=== PATIENT | male | born 1985 | race Caucasian/White ===

== ENCOUNTER 2017-10-23 15:24 | Emergency (ER) | payer SELFPAY ==
[2017-10-23 16:16] VITALS: BP 121/89
--- NOTE | 2017-10-23 17:39 | UC ---
Abdominal Pain Male HPI - HPI Summary HPI Summary: right upper quad and mid epigastric pain radiating to back and upper chest-- happens after eating and is worse at night, no nausea vomiting or fevers, - History of Current Complaint Chief Complaint: UCAbdominalPain Stated Complaint: ABD PAIN Time Seen by Provider: 10/23/17 17:35 Hx Obtained From: Patient Onset/Duration: Gradual Onset, Lasting Weeks - 2, Still Present Timing: Constant Severity Initially: Moderate Severity Currently: Moderate Pain Intensity: 4 Pain Scale Used: 0-10 Numeric Location: Discrete At: RUQ, Epigastric Radiates: Yes Character: Sharp Aggravating Factor(s): Food Alleviating Factor(s): Nothing Associated Signs And Symptoms: Negative: Fever, Constipation, Urinary Symptoms, Decreased Appetite, Nausea, Vomiting, Diarrhea, Penile Discharge - Allergies/Home Medications Allergies/Adverse Reactions: Allergies Allergy/AdvReac Type Severity Reaction Status Date / Time No Known Allergies Allergy Verified 10/23/17 16:16 Home Medications: Home Medications Zantac 1 tab PO PRN 10/23/17 [History] PMH/Surg Hx/FS Hx/Imm Hx Previously Healthy: No GI/ History: Gastroesophageal Reflux Other History Of: Negative For: Anticoagulant Therapy - Surgical History Surgical History: None - Family History Family History: mother and sisters with early gal bladder dz and removal - Social History Occupation: Employed Full-time Lives: With Family Alcohol Use: Weekly Substance Use Type: None Smoking Status (MU): Light Every Day Tobacco Smoker Cessation Counseling: Patient Advised to Stop - Immunization History Most Recent Tetanus Shot: 2 mos Review of Systems Constitutional: Negative Skin: Negative Eyes: Negative ENT: Negative Respiratory: Negative Cardiovascular: Negative Gastrointestinal: Abdominal Pain Genitourinary: Negative Motor: Negative Neurovascular: Negative Musculoskeletal: Negative Neurological: Negative Psychological: Negative Is Patient Immunocompromised?: No All Other Systems Reviewed And Are Negative: Yes Physical Exam Triage Information Reviewed: Yes Appearance: Well-Appearing, No Pain Distress, Well-Nourished Vital Signs: Initial Vital Signs Temp 98.3 F 10/23/17 16:11 Pulse 86 10/23/17 16:11 Resp 15 10/23/17 16:11 BP 121/89 10/23/17 16:11 Pulse Ox 100 10/23/17 16:11 Vital Signs Reviewed: Yes Eye Exam: Normal Eyes: Positive: Conjunctiva Clear ENT Exam: Normal ENT: Positive: Normal ENT inspection, Hearing grossly normal, Pharynx normal, TMs normal. Negative: Nasal congestion, Trismus, Muffled voice, Hoarse voice, Dental tenderness, Sinus tenderness Dental Exam: Normal Neck exam: Normal Neck: Positive: Supple, Nontender, No Lymphadenopathy Respiratory Exam: Normal Respiratory: Positive: Chest non-tender, Lungs clear, Normal breath sounds, No respiratory distress, No accessory muscle use Cardiovascular Exam: Normal Cardiovascular: Positive: RRR, No Murmur, Pulses Normal, Brisk Capillary Refill Abdominal Exam: Normal Abdomen Description: Positive: No Organomegaly, Soft, Other: - ruq and mid epigatric discomfort. Negative: CVA Tenderness (R), CVA Tenderness (L), Distended, Guarding, Hepatomegaly, McBurney's Point Tenderness, Peritoneal Signs , Pulsatile Mass Bowel Sounds: Positive: Present Musculoskeletal Exam: Normal Musculoskeletal: Positive: Strength Intact, ROM Intact, No Edema Neurological Exam: Normal Neurological: Positive: Alert, Muscle Tone Normal Psychological Exam: Normal Skin Exam: Normal Diagnostics - Laboratory Diagnostic Studies Completed/Ordered: ua wnl--will draw labs for follow up appoint with MD or Surgeon this week Abd Pain Male Course/Dx - Course Course Of Treatment: low fat diet, pain med, follow with pcp or surgeon this week to ed for worsening pain, fever, nausea/vomiting - Differential Dx/Clinical Impression Provider Diagnoses: RUQ pain, nicotine dependent Discharge - Discharge Plan Condition: Stable Disposition: HOME Prescriptions: Hydrocodone/Acetaminophen [Hydrocodone-Acetamin 5-325 mg] 1 each PO Q6HR PRN # 15 tablet MDD 4 PRN Reason: Pain - Moderate To Severe Patient Education Materials: Gallstones (ED), Low Fat Diet (ED) Referrals: [facility] [place] PHYSICIAN REFERRAL [Outside] - As Soon As Possible David Arredondo MD [Medical Doctor] - 2 Days Additional Instructions: To ED for worsening pain, fevers, or unable to keep down food and liquids--- Follow with Surgeon or PCP this week
[2017-10-24 10:32] LABS: Hematocrit 46 % (42-52); Hemoglobin 15.7 g/dl (14.0-18.0); Mean Corpuscular HGB Conc 34 g/dl (31-36); Mean Corpuscular Hemoglobin 32 pg (27-31); Mean Corpuscular Volume 93 fL (80-94); Mean Platelet Volume 10 um3 (7.4-10.4); Platelet Count 232 10^3/ul (150-450); Red Blood Count 4.96 10^6/ul (4.0-5.4); Red Cell Distribution Width 13 % (10.5-15); White Blood Count 7.8 10^3/ul (3.5-10.8)
[2017-10-24 10:44] LABS: EGFR Non-African American 99.1 (>60)
== END 2017-10-23 18:20 | disposition home or self-care (01) ==
LOC: UCEAST 15:24
DX: R10.11 Right upper quadrant pain (principal); F17.210 Nicotine dependence, cigarettes, uncomplicated; K21.9 Gastro-esophageal reflux disease without esophagitis
CPT/HCPCS: 36415; 80053; 81003; 82150; 83690; 85027; 99202; G0463

== ENCOUNTER 2017-12-24 10:18 | Emergency (ER) | payer OTHER ==
[2017-12-24 11:00] VITALS: BP 147/95
--- NOTE | 2017-12-24 12:27 | UC ---
Neck Pain HPI - HPI Summary HPI Summary: PATIENT PRESENTS WITH ACUTE NECK PAIN AFTER FALLING BACKWARDS ABOUT 11 DAYS AGO. HE WAS IMPROVING UNTIL SEVERAL DAYS AGO WHEN HE MOVED SOME HEAVY FURNITURE AND HIS SYMPTOMS RETURNED. PATIENT IS HAVING DIFFICULTY WITH HEAD ROTATION. STATES THE PAIN IS SHOOTING INTO HIS LEFT ARM. - History of Current Complaint Chief Complaint: UCBackPain Stated Complaint: BACK/NECK/SHOULDER INJURY Time Seen by Provider: 12/24/17 12:02 Hx Obtained From: Patient Timing: Constant Onset/Duration: Sudden Onset, Lasting Days, Still Present Severity: Moderate Pain Intensity: 8 Pain Scale Used: 0-10 Numeric Location: Discrete At: - Posterior neck Character: Sharp, Aching, Stiff Aggravating Factors: Movement Associated Signs & Symptoms: Negative: Swelling, Redness, Bruising, Nuchal Rigity, Weakness, Headache, Paresthesia - Allergies/Home Medications Allergies/Adverse Reactions: Allergies Allergy/AdvReac Type Severity Reaction Status Date / Time No Known Allergies Allergy Verified 12/24/17 10:55 Home Medications: Home Medications Ibuprofen TAB* [Advil TAB*] 800 mg PO Q8HR PRN 12/24/17 [History Confirmed 12/24] Ranitidine TAB (NF) [Zantac TAB (NF)] 150 mg PO DAILY PRN 12/24/17 [History Confirmed 12/24/17] PMH/Surg Hx/FS Hx/Imm Hx Previously Healthy: Yes Other History Of: Negative For: Anticoagulant Therapy - Surgical History Surgical History: None - Family History Known Family History: Positive: Hypertension Family History: mother and sisters with early gal bladder dz and removal - Social History Alcohol Use: Occasionally Substance Use Type: None Smoking Status (MU): Light Every Day Tobacco Smoker Amount Used/How Often: 4-8cig/day Household Exposure Type: Cigarettes - Immunization History Most Recent Tetanus Shot: 2 mos Review Of Systems Constitutional: Positive: Negative Skin: Positive: Negative Respiratory: Positive: Negative Cardiovascular: Positive: Negative Gastrointestinal: Positive: Negative Musculoskeletal: Positive: Arthralgia, Decreased ROM All Other Systems Reviewed And Are Negative: Yes Physical Exam Triage Information Reviewed: Yes Appearance: Well-Appearing, No Pain Distress, Well-Nourished Vital Signs: Initial Vital Signs Temp 98.4 F 12/24/17 10:56 Pulse 76 12/24/17 10:56 Resp 18 12/24/17 10:56 BP 147/95 12/24/17 10:56 Pulse Ox 100 12/24/17 10:56 Vital Signs Reviewed: Yes Eyes: Positive: Conjunctiva Clear ENT: Positive: Hearing grossly normal Neck: Positive: Supple, No Lymphadenopathy, Tenderness @ - POSTERIOR NECK OVER SPINOUS PROCESSES, Other: - UNABLE TO ASSESS SPURLINGS DUE TO PT DISCOMFORT Respiratory: Positive: No respiratory distress, No accessory muscle use Cardiovascular: Positive: Pulses Normal Abdomen Description: Positive: Soft Musculoskeletal: Positive: No Edema Neurological: Positive: Alert Psychological: Positive: Age Appropriate Behavior Skin: Negative: rashes Neck Pain Course/Dx - Differential Dx/Diagnosis Provider Diagnoses: ACUTE CERVICAL STRAIN Discharge - Sign-Out/Discharge Documenting (check all that apply): Discharge/Admit/Transfer - Discharge Plan Condition: Stable Disposition: HOME Prescriptions: Cyclobenzaprine TAB* [Flexeril TAB*] 10 mg PO TID PRN #30 tab PRN Reason: Pain Meloxicam [Mobic] 7.5 mg PO BID PRN #30 tab PRN Reason: Pain Patient Education Materials: Cervical Strain (ED) Forms: *Work Release Referrals: No Primary Care Phys,NOPCP [Primary Care Provider] - Additional Instructions: CERVICAL SPINE X-RAY SHOWS STRAIGHTENING WITH MILD REVERSAL OF THE NORMAL CERVICAL LORDOSIS. NO ACUTE OSSEOUS INJURY. WILL TREAT SYMPTOMS WITH MUSCLE RELAXER AND ANTI-INFLAMMATORY. IF YOUR SYMPTOMS PERSIST YOU MAY BENEFIT FROM [facility] FOR FURTHER EVALUATION. CALL THE SPINE CENTER OR THE PHYSICIAN REFERRAL CENTER TO SEEK FOLLOW-UP. YOU MAY BENEFIT FROM NEUROSURGICAL EVALUATION DEPENDING ON WHAT IS SEEN ON MORE [facility]. BE SURE TO GO THROUGH SLOW RANGE OF MOTION AND STRETCHING EXERCISES DAILY YOU ARE ABLE TO PREVENT STIFFENING UP AND MAKING THE DISCOMFORT WORSE. [facility] [address] [place] [address] CALL THE NUMBER BELOW FOR ASSISTANCE IN ESTABLISHING WITH A PCP An additional resource available to assist in finding the appropriate physician for your health care needs is the Physician Referral Center ([facility]). You may contact them by calling [phone]. - Billing Disposition and Condition Condition: STABLE Disposition: HOME
--- NOTE | 2017-12-24 12:52 | RAD ---
HISTORY: Pain after fall, neck pain COMPARISONS: September 01, 2012 VIEWS: 6, Frontal, lateral, open-mouth odontoid, and bilateral oblique views of the cervical spine. FINDINGS: The cervical spine is visualized from the skull base through T1. ALIGNMENT: There is straightening with mild reversal of the normal cervical lordosis. VERTEBRAL BODIES: The odontoid process is intact. The atlantoaxial intervals are symmetric. JOINTS: There is no subluxation or dislocation. The facet joints are unremarkable. There is no osseous neural foraminal area on the oblique views. INTERVERTEBRAL DISCS: The intervertebral disc heights are normal. SOFT TISSUE: The prevertebral soft tissues are normal. OTHER: The skull base is normal. The lung apices are clear. IMPRESSION: STRAIGHTENING WITH MILD REVERSAL OF THE NORMAL CERVICAL LORDOSIS. NO ACUTE OSSEOUS INJURY TO THE CERVICAL SPINE.
== END 2017-12-24 13:35 | disposition home or self-care (01) ==
LOC: UCEAST 10:18
DX: S16.1XXA Strain of muscle, fascia and tendon at neck level, initial encounter (principal); X50.0XXA Overexertion from strenuous movement or load, initial encounter; Y93.89 Activity, other specified; Y92.9 Unspecified place or not applicable; F17.210 Nicotine dependence, cigarettes, uncomplicated
CPT/HCPCS: 72050; 99212; G0463

== ENCOUNTER 2018-12-31 11:33 | Emergency (ER) | payer OTHER ==
[2018-12-31 12:36] VITALS: BP 133/89
--- NOTE | 2018-12-31 13:26 | UC ---
Back Pain HPI - HPI Summary HPI Summary: PATIENT STATES HE WAS LIFTING HEAVY PAVERS AT WORK 8 DAYS AGO ON 12/23/18. FELT A TWINGE IN HIS LEFT LOW BACK WHICH HE STATES HAS BEEN PERSISTENT SINCE THEN AND NOW ACTUALLY FEELS WORSE. PAIN RADIATES DOWN HIS LEFT LEG AND NOW PATIENT IS ALSO COMPLAINING OF BILATERAL UPPER EXTREMITY NUMBNESS/TINGLING. DENIES ANY WEAKNESS OR INJURY TO THE UPPER BACK/NECK. STATES HE HAS A HISTORY OF LOW BACK PAIN/L5 FRACTURE AND HAD A CORTISONE INJECTION IN 2010. - History of Current Complaint Chief Complaint: UCBackPain Stated Complaint: BACK INJURY Time Seen by Provider: 12/31/18 13:00 Hx Obtained From: Patient Onset/Duration: Sudden Onset, Lasting Days, Still Present Timing: Constant Severity Initially: Moderate Severity Currently: Moderate Pain Intensity: 5 Pain Scale Used: 0-10 Numeric Character: Sharp Aggravating Factor(s): Movement Alleviating Factor(s): Rest Associated Signs And Symptoms: Positive: Numbness, Tingling. Negative: Swelling , Redness, Bruising, Weakness, Bladder Incontinence, Bowel Incontinence - Allergies/Home Medications Allergies/Adverse Reactions: Allergies Allergy/AdvReac Type Severity Reaction Status Date / Time No Known Allergies Allergy Verified 12/24/17 10:55 PMH/Surg Hx/FS Hx/Imm Hx - Additional Past Medical History Additional PMH: CHRONIC LOW BACK PAIN Other History Of: Negative For: Anticoagulant Therapy - Surgical History Surgical History: None - Family History Known Family History: Positive: Hypertension Family History: mother and sisters with early gal bladder dz and removal - Social History Alcohol Use: Occasionally Substance Use Type: None Smoking Status (MU): Light Every Day Tobacco Smoker Amount Used/How Often: 4-8cig/day Household Exposure Type: Cigarettes - Immunization History Most Recent Tetanus Shot: 2 mos Review of Systems All Other Systems Reviewed And Are Negative: Yes Constitutional: Positive: Negative Skin: Positive: Negative Respiratory: Positive: Negative Cardiovascular: Positive: Negative Gastrointestinal: Positive: Negative Musculoskeletal: Positive: Arthralgia, Myalgia Neurological: Positive: Paresthesia Physical Exam Triage Information Reviewed: Yes Appearance: Well-Appearing, No Pain Distress, Well-Nourished Vital Signs: Initial Vital Signs Temp 98.3 F 12/31/18 12:31 Pulse 60 12/31/18 12:31 Resp 18 12/31/18 12:31 BP 133/89 12/31/18 12:31 Pulse Ox 98 12/31/18 12:31 Vital Signs Reviewed: Yes Eyes: Positive: Conjunctiva Clear ENT: Positive: Hearing grossly normal Neck: Positive: Supple Respiratory: Positive: No respiratory distress, No accessory muscle use Cardiovascular: Positive: Pulses Normal Abdomen Description: Positive: Soft Musculoskeletal: Positive: No Edema, ROM Limited @ - BACK Neurological: Positive: Alert, Other: - NEG TINELS. MILDLY TENDER LOW BACK. 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 MILD DEGENERATIVE DISC DISEASE. Back Pain Course/Dx - Differential Dx/Diagnosis Provider Diagnosis: Acute exacerbation of chronic low back pain, Paresthesias Discharge - Sign-Out/Discharge Documenting (check all that apply): Patient Departure All imaging exams completed and their final reports reviewed: Yes - Discharge Plan Condition: Stable Disposition: HOME Prescriptions: predniSONE TAB* [Deltasone 20 MG TAB*] 40 mg PO DAILY #10 tab Patient Education Materials: Low Back Strain (ED), Paresthesia (ED) Referrals: Atul Stokes MD [Primary Care Provider] - If Needed Tan Ling MD [Medical Doctor] - 2 Weeks Additional Instructions: X-RAYS OF YOUR LUMBAR SPINE AND CERVICAL SPINE TODAY SHOW SOME STABLE DEGENERATIVE CHANGES. NO ACUTE PATHOLOGY. PREDNISONE MAY HELP DECREASE SWELLING AND INFLAMMATION WHICH MAY IMPROVE THE PARESTHESIAS IN YOUR UPPER EXTREMITIES. RECOMMEND YOU FOLLOW-UP AT THE SPINE CENTER IN [place] OR NEUROSURGERY HERE IN [place] FOR FURTHER EVALUATION. GO TO THE ER WITHOUT FAIL IF YOU DEVELOP WORSENING PAIN, WEAKNESS, WORSENING NUMBNESS/TINGLING, NUMBNESS IN THE GENITAL REGION, LOSS OF BOWEL OR BLADDER CONTROL OR ANY OTHER CONCERNING SYMPTOMS. PT REFERRAL PROVIDED TODAY. [facility] [address] [place], [place] [id number] - Billing Disposition and Condition Condition: STABLE Disposition: Home
== END 2018-12-31 14:17 | disposition home or self-care (01) ==
LOC: UCEAST 11:33
DX: G89.29 Other chronic pain (principal); M54.5 Low back pain; R20.2 Paresthesia of skin; M47.817 Spondylosis without myelopathy or radiculopathy, lumbosacral region; M43.17 Spondylolisthesis, lumbosacral region; M50.30 Other cervical disc degeneration, unspecified cervical region; F17.210 Nicotine dependence, cigarettes, uncomplicated
CPT/HCPCS: 72040; 72110; 99212; G0463